=== PATIENT | female | born 1935 | race Caucasian/White ===

== ENCOUNTER 2020-03-06 08:18 | Inpatient (IN) ==
[2020-03-06] MEDS ORDERED: *HR* Promethazine 25 MG/ML VIAL IVP PRN (10:31)
[2020-03-06] MEDS ORDERED: Naloxone 0.4 MG/ML INJ IVP PRN (10:31)
[2020-03-06] MEDS ORDERED: Acetaminophen 325 MG TABLET PO PRN (10:31)
[2020-03-06] MEDS ORDERED: *HR* Digoxin 0.5 MG/2 ML AMPUL IVP ONE (10:42)
[2020-03-06] MEDS ORDERED: Amiodarone Premix 360 MG/200 ML BAG IVC ONE (11:05)
[2020-03-06] MEDS ORDERED: Levalbuterol Neb 0.63 MG/3 ML IH PRN (11:20)
[2020-03-06] MEDS ORDERED: Nitroglycerin 0.4 MG TAB.SUBL SL PRN (11:26)
[2020-03-06] MEDS ORDERED: Amiodarone Premix 150 MG/100 ML BAG IVPB ONE (12:04)
[2020-03-06 12:22] LABS: Thyroid Stimulating Hormone 1.258 mcIU/mL (0.340-5.600)
[2020-03-06] MEDS: carvediloL 6.25 MG TABLET PO SCH (16:48)
[2020-03-06] MEDS: *HR* Enoxaparin 80 MG/0.8 ML SYRINGE SQ SCH (16:50)
[2020-03-06] MEDS ORDERED: Amiodarone Premix 360 MG/200 ML BAG IVC SCH (17:00)
[2020-03-07 02:43] LABS: Basophils # 0.1 K/mcL (0.0-0.2); Eosinophils # 0.2 K/mcL (0.0-0.6); Eosinophils % 3.6 %; Hematocrit 34.7 % (35.3-44.9); Hemoglobin 10.9 g/dL (11.5-15.4); Immature Granulocytes % 0.3 % (0-4); Lymphocytes # 1.8 K/mcL (0.6-4.6); Mean Corpuscular HGB Conc 31.4 g/dL (31.6-35.5); Mean Corpuscular Hemoglobin 28.8 pg (28.0-33.3); Mean Corpuscular Volume 91.8 fL (83.0-100.0); Mean Platelet Volume 9.8 fL (9.4-12.4); Monocytes # 0.5 K/mcL (0.0-1.3); Monocytes % 8.8 %; Neutrophils # 3.2 K/mcL (1.6-8.9); Platelet Count 238 K/mcL (140-400); Red Blood Count 3.78 M/mcL (3.82-4.97); Red Cell Distribution Width 14.9 % (11.5-14.5); Segmented Neutrophils % 55.3 %; White Blood Count 5.8 K/mcL (4.3-11.1)
[2020-03-07 03:04] LABS: Chol/HDL Ratio 2.9 (0-4.9)
[2020-03-07 03:05] LABS: Albumin 3.3 g/dL (3.5-5.7); Albumin/Globulin Ratio 1.4 (1.1-2.2); Bilirubin,Total 0.3 mg/dL (0.3-1.0); Calcium 9.4 mg/dL (8.6-10.3); Globulin 2.3 g/dL (2.4-3.5); Potassium 3.6 mEq/L (3.5-5.1); Total Protein 5.6 g/dL (6.4-8.9)
[2020-03-07] MEDS: *HR* Enoxaparin 80 MG/0.8 ML SYRINGE SQ SCH (05:52)
[2020-03-07] MEDS: carvediloL 6.25 MG TABLET PO SCH ×2 (07:13→17:19)
[2020-03-07] MEDS: Aspirin Enteric Coated 81 MG Tablet PO SCH (07:13)
[2020-03-07] MEDS: *HR* Amiodarone 200 MG TABLET PO SCH (11:52)
[2020-03-07] MEDS ORDERED: *HR* Rivaroxaban 10 MG TABLET PO SCH (18:00)
[2020-03-07] MEDS ORDERED: Famotidine 20 MG TABLET PO SCH (18:00)
[2020-03-08 03:22] LABS: Basophils # 0.1 K/mcL (0.0-0.2); Basophils % 1.1 %; Eosinophils # 0.3 K/mcL (0.0-0.6); Eosinophils % 4.8 %; Hematocrit 34.2 % (35.3-44.9); Hemoglobin 11.1 g/dL (11.5-15.4); Immature Granulocytes % 0.2 % (0-4); Lymphocytes # 1.5 K/mcL (0.6-4.6); Lymphocytes % 26.3 %; Mean Corpuscular HGB Conc 32.5 g/dL (31.6-35.5); Mean Corpuscular Hemoglobin 29.6 pg (28.0-33.3); Mean Corpuscular Volume 91.2 fL (83.0-100.0); Mean Platelet Volume 9.8 fL (9.4-12.4); Monocytes # 0.6 K/mcL (0.0-1.3); Neutrophils # 3.2 K/mcL (1.6-8.9); Platelet Count 252 K/mcL (140-400); Red Blood Count 3.75 M/mcL (3.82-4.97); Red Cell Distribution Width 14.7 % (11.5-14.5); Segmented Neutrophils % 56.6 %; White Blood Count 5.6 K/mcL (4.3-11.1)
[2020-03-08 03:51] LABS: Calcium 9.2 mg/dL (8.6-10.3); Magnesium 1.9 mg/dL (1.6-2.6); Potassium 4.5 mEq/L (3.5-5.1)
[2020-03-08 06:55] VITALS: BP 147/82
[2020-03-08] MEDS: *HR* Amiodarone 200 MG TABLET PO SCH (08:07)
[2020-03-08] MEDS: Aspirin Enteric Coated 81 MG Tablet PO SCH (08:07)
[2020-03-08] MEDS: carvediloL 6.25 MG TABLET PO SCH (08:07)
[2020-03-08] MEDS ORDERED: Tiotropium 18 MCG inhalation IH SCH (10:00)
== END 2020-03-08 10:38 | disposition home health service (06) | DRG 281 ==
LOC: 2ANU → 3NENU 12:05 → SUATTDRO 12:06 → 2ANU 03-07 15:17
PROVIDERS: ADMIT Internal Medicine; ATTEND Internal Medicine